=== PATIENT | female | born 1955 | race Caucasian/White ===

== ENCOUNTER → 2021-06-14 | Outpatient (CLI) | payer OTHER ==
[~2021-06-14] MED LIST: ASPIR 8181 MG PO; BISOPROLOL FUMAR5 M1 PO; HYDROCODON-ACE1 EAC7 PO; LEVAQUIN 500 M500 M4 PO; LISINOPRIL20 MG PO; NORVASC10 MG PO; ZOFRAN4 MG PO
== END ==
LOC: SJCVCIMAG 08:16
PROVIDERS: ATTEND Family Medicine
DX: I08.8 Other rheumatic multiple valve diseases (principal); R01.1 Cardiac murmur, unspecified; R06.00 Dyspnea, unspecified; I10 Essential (primary) hypertension; M79.606 Pain in leg, unspecified